=== PATIENT | male | born 1955 | race African-American/Black ===

== ENCOUNTER 2017-06-09 11:39 | Emergency (ER) | payer MEDICARE, OTHER ==
[2017-06-09] MEDS ORDERED: Adacel (T-DAP) 0.5 ML VIAL ONE (12:16)
--- NOTE | 2017-06-09 13:27 | RAD ---
THREE VIEWS OF THE SACRUM AND COCYX: COMPARISON: None. HISTORY: Laceration to the sacrum due to a cattle accident yesterday. FINDINGS: Three views of the sacrum/coccyx shows no evidence of displaced sacral or coccygeal fracture. The sa cral alae are symmetric in appearance. IMPRESSION: No significant sacral or coccygeal abnormality. POS: [facility]
--- NOTE | 2017-06-09 13:29 | RAD ---
SINGLE VIEW OF THE PELVIS: COMPARISON: None. HISTORY: Laceration to the sacrum after a cattle accident yesterday where she was knocked against the metal pa rt of a gate. FINDINGS: A single view of the pelvis shows no evidence of fracture or dislocation. No significant degenerati ve changes are seen in either hip. IMPRESSION: No evidence of acute osseous abnormality. POS: [facility]
== END 2017-06-09 13:17 | disposition home or self-care (01) ==
LOC: SCSER 11:39
DX: S31.010A Laceration without foreign body of lower back and pelvis without penetration into retroperitoneum, initial encounter (principal); I10 Essential (primary) hypertension; Z79.899 Other long term (current) drug therapy; W26.9XXA Contact with unspecified sharp object(s), initial encounter
CPT/HCPCS: 72170; 72220; 90471; 90715

== ENCOUNTER 2017-06-10 12:54 | Emergency (ER) | payer MEDICARE | END 2017-06-10 14:15 | disposition home or self-care (01) | LOC: SCSER 12:54 | DX: S31.030A Puncture wound without foreign body of lower back and pelvis without penetration into retroperitoneum, initial encounter (principal); I10 Essential (primary) hypertension; Z79.899 Other long term (current) drug therapy; W55.22XA Struck by cow, initial encounter | CPT/HCPCS: 99282 ==

== ENCOUNTER 2020-05-26 06:36 | Outpatient (CLI) | payer MEDICARE ==
[2020-05-26 17:06] LABS: SARS-CoV-2 MS2 Positive; SARS-CoV-2 N Gene Negative; SARS-CoV-2 S Gene Negative; SARS-CoV-2 by NAA Not Detected (NotDetected); SARS-CoV-2 orf1ab Negative
== END 2020-05-26 06:37 | disposition home or self-care (01) ==
LOC: LABBT 06:36
PROVIDERS: ATTEND Internal Medicine Gastroenterology
DX: Z01.812 Encounter for preprocedural laboratory examination (principal); Z20.822 Contact with and (suspected) exposure to COVID-19
CPT/HCPCS: 87635; U0003

== ENCOUNTER 2021-07-22 11:12 | Outpatient (CLI) | payer MEDICARE, OTHER ==
[2021-07-22] MEDS ORDERED: Iopamidol 370 76% 100 ML VIAL ONE (11:29)
== END 2021-07-22 11:13 | disposition home or self-care (01) ==
LOC: CT 11:12
PROVIDERS: ATTEND Internal Medicine Gastroenterology
DX: K63.89 Other specified diseases of intestine (principal); R91.8 Other nonspecific abnormal finding of lung field; K38.8 Other specified diseases of appendix
CPT/HCPCS: 71260; 74177; Q9967

== ENCOUNTER 2021-08-11 12:30 | Inpatient (IN) | payer MEDICARE, OTHER ==
[2021-08-11 11:15] VITALS: BMI 22.8
[2021-08-16] MEDS ORDERED: Fentanyl 100 MCG/2 ML VIAL ONE ×3 (07:01→11:58)
[2021-08-16] MEDS ORDERED: Midazolam HCl 2 mg/2 ml Vial ONE (07:01)
[2021-08-16] MEDS ORDERED: Famotidine/PF 20 mg/2ml Vial ONE (07:10)
[2021-08-16] MEDS ORDERED: Famotidine 20 MG TAB ONE (07:10)
[2021-08-16] MEDS ORDERED: Sodium Chloride 0.9% 100 ML ONE (07:45)
[2021-08-16] MEDS ORDERED: cefOXitin 2 GM VIAL ONE ×2 (07:45→09:54)
[2021-08-16] MEDS ORDERED: Ondansetron PF 4 MG/2 ML Vial ONE (07:58)
[2021-08-16] MEDS ORDERED: Dexamethasone 20 MG/5 ML VIAL ONE (07:58)
[2021-08-16] MEDS ORDERED: PHENYLEPHRINE-NS 100 MCG/ML 10 ML SYRINGE ONE (07:58)
[2021-08-16] MEDS ORDERED: Bupivacaine HCl 0.5%/Epinephrine 1:200,000/PF 30 ml Vial ONE (07:58)
[2021-08-16] MEDS ORDERED: Esmolol 100 MG/10 ML VIAL ONE (07:58)
[2021-08-16] MEDS ORDERED: Labetalol HCl 100 MG/20 ML VIAL ONE ×2 (07:58→10:15)
[2021-08-16] MEDS ORDERED: PROPOFOL 200 MG/20 ML VIAL ONE (07:58)
[2021-08-16] MEDS ORDERED: Rocuronium Bromide 10 MG/ML (10ML VIAL) ONE (07:58)
[2021-08-16] MEDS ORDERED: Glycopyrrolate 0.2 MG/ML 5 ML SYRINGE ONE (07:58)
[2021-08-16] MEDS ORDERED: Lidocaine 1% PF 5 ML VIAL ONE (07:58)
[2021-08-16] MEDS ORDERED: Promethazine HCl 25 MG/ML VIAL IM PRN ×2 (09:41→11:04)
[2021-08-16] MEDS ORDERED: Promethazine HCl 25 MG/ML VIAL IVPB PRN (09:41)
[2021-08-16] MEDS ORDERED: Ondansetron HCl/PF 4 MG/2 ML Vial IVP PRN (09:41)
[2021-08-16] MEDS ORDERED: SUGAMMADEX SODIUM 200 MG/2 ML VIAL ONE (10:05)
[2021-08-16] MEDS ORDERED: hydrALAZINE 20 MG/ML VIAL ONE (10:46)
[2021-08-16] MEDS ORDERED: Ondansetron PF 4 MG/2 ML Vial IVP PRN (11:04)
[2021-08-16] MEDS ORDERED: hydrALAZINE 20 MG/ML VIAL SLOW IVP PRN (11:04)
[2021-08-16] MEDS: D5 1/2 NS w/20 mEq KCL 1,000 ML IV SCH ×2 (14:56→17:31)
[2021-08-16] MEDS: Ketorolac Tromethamine 30 MG/ML VIAL IVP PRN (17:37)
[2021-08-16] MEDS: cefOXitin Sodium 1 GM in Sodium Chloride 0.9% 100 ML IVPB SCH (18:45)
[2021-08-16] MEDS: Fentanyl 100 MCG/2 ML VIAL SLOW IVP PRN (18:45)
[2021-08-16] MEDS: Famotidine/PF 20 mg/2ml Vial SLOW IVP SCH (20:35)
[2021-08-17] MEDS: Famotidine 20 MG TAB PO SCH ×3 (00:12→21:24)
[2021-08-17] MEDS: cefOXitin Sodium 1 GM in Sodium Chloride 0.9% 100 ML IVPB SCH (02:38)
[2021-08-17] MEDS: D5 1/2 NS w/20 mEq KCL 1,000 ML IV SCH ×2 (02:38→15:35)
[2021-08-17] MEDS: Fentanyl 100 MCG/2 ML VIAL SLOW IVP PRN (05:28)
[2021-08-17 08:03] LABS: Anion Gap 12 mmol/L (10-20); BUN (Urea Nitrogen) 11 mg/dL (8.4-25.7); Calc. Creatinine Clearance 57 mL/min (70-130); Calcium 10.1 mg/dL (7.8-10.44); Carbon Dioxide 24 mmol/L (23-31); Chloride 103 mmol/L (98-107); Glucose 132 mg/dL (80-115); Potassium 4.1 mmol/L (3.5-5.1); Sodium 135 mmol/L (136-145)
[2021-08-17 08:21] LABS: Band 3 % (5-11); Eosinophils 1 % (0-10); Hemoglobin 14.4 g/dL (14.0-18.0); Lymphocytes 18 % (21-51); MDiff Complete? YES; Mean Corpuscular HGB CONC 33.8 g/dL (32.0-36.0); Mean Corpuscular Hemoglobin 30.5 pg (27.0-31.0); Mean Corpuscular Volume 90.4 fL (78.0-98.0); Mean Platelet Volume 6.6 fL (7.4-10.4); Neutrophil 72 % (42-75); Platelet Count 362 thou/uL (130-400); Platelet Morphology Comment Appears Adequate; Polychromasia SLIGHT = 2-3 cells (100X) (0-2/hpf); RBC Distribution Width 11.9 % (11.5-14.5); Reactive Lymphocytes 5 % (0-10); Vacuoles SLIGHT; White Blood Cell (WBC) Count 13.5 thou/uL (4.8-10.8)
[2021-08-17] MEDS: Famotidine/PF 20 mg/2ml Vial SLOW IVP SCH ×2 (08:44→21:24)
[2021-08-17] MEDS: Enoxaparin Sodium 40 MG/0.4 ML SYRINGE SC SCH (08:46)
[2021-08-17] MEDS: Fluticasone Propionate Nasal Spray 16 gm Bottle NASAL SCH (08:59)
[2021-08-17] MEDS: Ketorolac Tromethamine 30 MG/ML VIAL IVP PRN ×2 (09:27→18:18)
[2021-08-17] MEDS ORDERED: Pseudoephedrine HCl 30 MG TAB PO PRN (15:25)
[2021-08-17] MEDS ORDERED: Amlodipine 10 MG TAB PO SCH (19:45)
[2021-08-17] MEDS: HYDROcodone/Acetaminophen 7.5/325 mg Tablet PO PRN (21:37)
[2021-08-18] MEDS: D5 1/2 NS w/20 mEq KCL 1,000 ML IV SCH (04:29)
[2021-08-18] MEDS: Ketorolac Tromethamine 30 MG/ML VIAL IVP PRN (04:32)
[2021-08-18 07:56] VITALS: BP 145/92; TEMP 97.8
[2021-08-18] MEDS: Enoxaparin Sodium 40 MG/0.4 ML SYRINGE SC SCH (08:47)
[2021-08-18] MEDS: Famotidine 20 MG TAB PO SCH (08:48)
[2021-08-18] MEDS: HYDROcodone/Acetaminophen 7.5/325 mg Tablet PO PRN (08:49)
[2021-08-18] MEDS: Fluticasone Propionate Nasal Spray 16 gm Bottle NASAL SCH (08:51)
[2021-08-18] MEDS: Famotidine/PF 20 mg/2ml Vial SLOW IVP SCH (08:51)
[2021-08-18] MEDS ORDERED: Amlodipine 10 MG TAB PO SCH (09:00)
[2021-08-18] MEDS ORDERED: Loratadine 10 MG TAB PO SCH (09:00)
== END 2021-08-18 11:59 | disposition home or self-care (01) | DRG 331 ==
LOC: SURG A 08-16 05:50
PROVIDERS: ADMIT Surgery; ATTEND Surgery
PROC: 0DBF4ZZ Excision of Right Large Intestine, Percutaneous Endoscopic Approach (ICD-10-PCS; principal; 2021-08-16)
PROC: 8E0W4CZ Robotic Assisted Procedure of Trunk Region, Percutaneous Endoscopic Approach (ICD-10-PCS; 2021-08-16)
DX: C18.2 Malignant neoplasm of ascending colon (principal); I10 Essential (primary) hypertension; K21.9 Gastro-esophageal reflux disease without esophagitis; M19.011 Primary osteoarthritis, right shoulder; M17.10 Unilateral primary osteoarthritis, unspecified knee; J30.2 Other seasonal allergic rhinitis; Z79.899 Other long term (current) drug therapy; Z86.16 Personal history of COVID-19
CPT/HCPCS: 36415; 36416; 80048; 85025; 88309; J0360; J0694; J1100; J1650; J1885; J2250; J2405; J2704; J3010; J3480; J3490; S0028

== ENCOUNTER 2022-07-19 08:11 | Outpatient (CLI) | payer MEDICARE, OTHER | END 2022-07-19 08:12 | disposition home or self-care (01) | LOC: BICCT 08:11 | PROVIDERS: ATTEND Internal Medicine Critical Care Medicine | DX: R91.8 Other nonspecific abnormal finding of lung field (principal) | CPT/HCPCS: 71250 ==